=== PATIENT | female | born 1960 | race Caucasian/White ===

== ENCOUNTER → 2018-08-04 | Outpatient (REF) | payer OTHER ==
[2018-08-04 14:52] LABS: RHEUMATOID FACTOR QUANT < 10.0 IU/ML (<15.0)
[2018-08-04 15:29] LABS: IMMUNOGLOBULIN G 921 MG/DL (681-1648); IMMUNOGLOBULIN M 78.7 MG/DL (40-230)
== END ==
LOC: M LAB REF 13:35
PROVIDERS: ATTEND Internal Medicine Pulmonary Disease
DX: J44.9 Chronic obstructive pulmonary disease, unspecified (principal)

== ENCOUNTER → 2018-08-11 | Outpatient (CLI) | payer OTHER ==
--- NOTE | 2018-08-12 10:10 | REP ---
PET/CT: History: Diagnosing lung cancer. Comparisons: Chest CT [facility] July 22, 2018. TECHNIQUE: 60 minutes following the intravenous injection of a 8.1 mCi dose of F-18 FDG, three-dimensional PET scintigraphy is acquired from the skull base to the proximal thighs. Triplanar noncontrast CT scanning is acquired through the same anatomic range for attenuation correction, and image registration with scan parameters optimized to minimize radiation exposure to the patient. PET scintigraphy and CT datasets were fused and displayed on a workstation with multiplanar and projection display capability. PET/CT Findings: The irregular small nodule seen in recent CT study in the right lower lobe is not hypermetabolic. Maximum standard uptake value is 0.72. There is no abnormal hilar or mediastinal hypermetabolic uptake. There is visible but nonhypermetabolic uptake in the nodular upper lobe opacity seen on recent CT. Maximum standard uptake value in these ranges up to 3.11. This is in a linear band-like opacity in the apex. The nodular opacities show maximum standard uptake value of approximately 2.0. Head and neck soft tissues are unremarkable. No abnormal abdominal or pelvic hypermetabolic uptake is seen. Impression: Low level, predominantly nonhypermetabolic uptake in the bilateral upper lobe opacities, maximum standard uptake value 3.0. The right lower lobe opacity is not hypermetabolic. CT followup suggested. Electronically Signed by Eliud Rivas MD 08/12/2018 03:52 P
== END ==
LOC: M PLARAD 14:41
PROVIDERS: ATTEND Internal Medicine Pulmonary Disease
DX: R91.8 Other nonspecific abnormal finding of lung field (principal)
CPT/HCPCS: 78815; A9552

== ENCOUNTER → 2023-08-18 | Outpatient (CLI) | payer OTHER | LOC: M PLARAD 09:00 | PROVIDERS: ATTEND Internal Medicine Critical Care Medicine | DX: R91.8 Other nonspecific abnormal finding of lung field (principal) | CPT/HCPCS: 78815; A9552 ==

== ENCOUNTER → 2024-05-24 | Outpatient (CLI) | payer MEDICARE ==
[2024-05-24 09:27] LABS: ABG BASE EXCESS 0.8 (-2.0-2.0); ABG HCO3 24.8 MMOL/L (22.0-26.0); ABG O2 SATURATION 98.3 % (95.0-99.0); ABG PARTIAL PRESSURE CO2 37.3 mmHg (35.0-45.0); ABG PARTIAL PRESSURE O2 106.1 mmHg (75.0-100.0); ABG STANDARD HCO3 25.2 MMOL/L. (22.0-26.0); ABG TOTAL CO2 25.9 MMOL/L (23.0-31.0)
== END ==
LOC: M LAB 08:43
PROVIDERS: ATTEND Internal Medicine Pulmonary Disease
DX: J44.9 Chronic obstructive pulmonary disease, unspecified (principal)